=== PATIENT | female | born 1940 | race Caucasian/White ===

== ENCOUNTER → 2019-03-12 | Outpatient (CLI) | payer OTHER ==
[~2019-03-12] VITALS: Ht 149.9 cm; Wt 54.1 kg
[~2019-03-12] MED LIST: ALENDRONATE SOD70 MG PO; EXCEDRIN CAPLE1 EACH PO; FISH OIL 1,001000 M2 PO; MULTI VITAMIN1 EACH PO; NORCO 5-325 TA1 EACH PO; PREMARIN30 GM TOP; TRAMADOL 50 MG50 MG PO; TRAZODONE 150150 M1 PO; TYLENOL325 MG PO; VITAMIN D1000 UNI1 PO; VITAMIN E400 UNIT PO
--- NOTE | ~2019-03-12 | HPC ---
[facility] [address] [place] [address] PAIN MANAGEMENT CONSULTATION Name: JHONATAN HI Room #: REG LILY MEvelinYi.#: [id number] Admission: 03/12/19 ������������������ Attend Phys: Be Diana MD Discharge: ������������������ Date of : 36 Report #: [id number] THIS REPORT FOR: //name// CC: [facility] physician/PCP Romie Martinez MD DATE OF SERVICE: 03/12/2019 CHIEF COMPLAINT: Severe low back pain on the right with marked thoracolumbar rotational scoliosis. HISTORY OF PRESENT ILLNESS: The patient is a very pleasant 78-year-old who as we found out is neighbor! She lives just down the street from me, we have not met before today. For the last 4-5 years, she has had steadily increasing pain that she describes as a severe right-sided pain with continuous, steady, shooting, aching sensation. It is worsened by all exercise, bending and physical activity. She gets some relief when she rests and that she has been taking a combination of Excedrin, tramadol and hydrocodone at a low dose, which provides some relief. She has had multiple visits to [facility] where she has seen Patrick Goss. She also saw Dr. Hilda Trujilol for 1 visit at the Pain Clinic. It sounds from her description that she has had several epidurals over the years. I am not sure if she has had any radiofrequency or facet treatments. They do not sound familiar to her. She complains that the injection treatments have never provided much lasting relief, although she has had some short term benefits. She had a trial of a spinal cord stimulator at [facility] for her axial back pain. This was of course a failure and did not provide lasting relief. She has never had radiculopathy. Dr. Witt apparently discussed with her the possibility of an intrathecal pump; however, this seems a bit daunting for her given the size of the pump and her own small body habitus. She does remain active. She is doing water aerobics at [employer] and finds that this is helpful, but the pain relief is not lasting. She is not walking much because of the pain and feels that the pain is limiting her day-to-day activities. MEDICATIONS: List: Tramadol 50 mg t.i.d. at maximum usually at least once a day, hydrocodone 5/325 one half tablet as needed no more than 3 tablets per week, trazodone 150 mg daily, Premarin cream, Fosamax, Excedrin, Tylenol, fish [address] [address] PAIN MANAGEMENT CONSULTATION Name: JHONATAN HI RINA Room #: REG LILY Rosales#: [id number] Admission: 03/12/19 ������������������ Attend Phys: Be Diana MD Discharge: ������������������ Date of : 38 Report #: [id number] oil, multivitamins, vitamin E and vitamin D. ALLERGIES: None. PAST MEDICAL HISTORY: Hypertension, history of knee replacement in 2011. Distant surgeries included tonsillectomy in 1947 and appendectomy in 1956. Otherwise, she reports that she is in excellent health. SOCIAL HISTORY: She lives in my neighborhood in [place]. 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 She muses that she was not gifted herself, but taught the more gifted children. She denies use of tobacco or alcohol. She is currently . REVIEW OF SYSTEMS: Positive for fatigue; blurred vision; some hearing loss; chronic constipation, worse with medication; frequent urination; nocturia; and a history of depression, although she denies depression at this time. PHYSICAL EXAMINATION: GENERAL: She is a very giulia 78-year-old female. VITAL SIGNS: She is 4 feet 11 inches, weight 119 pounds, and BMI is 24.1. CHEST: Clear. CARDIAC: Rhythm is regular. ABDOMEN: Soft. MUSCULOSKELETAL: Demonstrates marked thoracolumbar curvature beginning in the [id number]-tg-evd thoracic region and then curving to the right with a dextrorotation. The right paravertebral musculature prominent and tender. She has diffuse tenderness across the lumbosacral segment. She has some mild pain that radiates into the right leg, which is consistent with radiculopathy of a mild degree present with straight leg raising. Deep tendon reflexes are absent. Sensation is intact. There is no focal weakness. IMPRESSION: 1. Chronic intractable back pain secondary to spondylosis and some mild lumbar radiculopathy. 2. History of hypertension, not currently under treatment. 3. Chronic intractable pain. RECOMMENDATIONS: We had a nice discussion today about treatment of chronic pain with medication. She does get quite good relief with hydrocodone, much more so than tramadol, and I have suggested to her that she can take it more frequently. We talked about the opioid crisis and we talked about the difference between dependence and addiction. We talked about tolerance and she has good understanding I think of tolerance, and is careful to try not to create it by taking more than she needs. [facility] [address] [place] [address] PAIN MANAGEMENT CONSULTATION Name: JHONATAN HI Room #: REG LILY Rosales#: [id number] Admission: 03/12/19 ������������������ Attend Phys: Be Diana MD Discharge: ������������������ Date of : 38 Report #: [id number] At the same time, I think that there is good reason for us to allow an 78-year-old woman, with an untreatable chronic and progressive spinal condition that causes significant pain, to go forward with a pain medication if she can manage the side effect of constipation. I would recommend for her that rather than wasting time on injections that probably will not provide substantial lasting relief that she take a bit more hydrocodone. She is under contract with Dr. Goss and she can discuss this with him. I am not trying to hijack her opioid agreement. I will be happy to provide that medication for her if she would like to make a transition, but for the time being, the [facility] pain clinic is close to home and she has a nice relationship with them. She will discuss medication management further with them. Thank very much for the consultation. ��������������������������������������������� ���������������������������������������� By: ��������������������������������������������� [id number] Be Diana MD /nt
[2019-03-12 10:36] VITALS: BP 144/67
--- NOTE | 2019-03-12 10:57 | NUR ---
Pain Clinic Assessment: 1. History of Osteoarthritis: BACK History of Rheumatoid Arthritis: Not Applicable 2. Height: 4 ft. 11 in. 149.9 cm. Weight: 119.2 lb. oz. 54.069 kg. Patient's BMI: 24.1 3. Vital Signs: BP: 144/67 Pulse: 70 Resp: 16 Temp: 02 Sat: 99 ECG Mon: 4. Pain Intensity: 8 5. Fall Risk: Dizziness: N Needs help standing or walking: N Fallen in the last 3 months: N Fall risk comments: 6. Patient on Blood Thinner: None 7. History of Hypertension: Y 8. Opioid Therapy greater than 6 weeks: N Opiate Contract Signed: 9. Risk Assessment Tool Provided: LOW RISK 10/30 10. Functional Assessment Tool: 11. Recreational Drug Use: Never Drug Type: Tobacco Use: Never Smoker Tobacco Type: Amount or Packs/day: How Many Years: Alcohol Use: No Frequency: Quant:
== END ==
LOC: PAIN 06:49
DX: M47.26 Other spondylosis with radiculopathy, lumbar region (principal); G89.4 Chronic pain syndrome; I10 Essential (primary) hypertension

== ENCOUNTER → 2019-04-02 | Outpatient (CLI) | payer OTHER ==
[~2019-04-02] VITALS: Ht 149.9 cm; Wt 54.3 kg
--- NOTE | ~2019-04-02 | HPC ---
[facility] [address] [place] [address] PAIN MANAGEMENT CONSULTATION Name: JHONATAN HI Room #: REG Nataliia Galvin.#: [id number] Admission: 04/02/19 ������������������ Attend Phys: Be Diana MD Discharge: ������������������ Date of : 38 Report #: [id number] THIS REPORT FOR: //name// CC: Patrick Goss MD [facility] physician/PCP Be Diana DATE OF SERVICE: 04/02/2019 The patient returned to the pain clinic today after her initial consultation believing that she was to get an injection. 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 I felt that her visit was a second opinion as she had been following with Dr. Goss at [facility] and has established an opioid agreement with him. Today, she presented with a new complaint of this localized pain over the left sacroiliac joint. Not surprised that she might periodically experienced spondylitic pains. We discussed treatment, which would include ongoing continued exercise, perhaps a nonsteroidal anti-inflammatory medication and sacroiliac injection. I reiterated my belief that if she has a good established relationship with Dr. Goss in their clinic for medication management that she can continue there. It is closer to her home in [facility] [place] [facility]. PHYSICAL EXAMINATION: VITAL SIGNS: Blood pressure is 142/58, heart rate 77, and respirations 14. She moves from sitting to standing position. Her gait is a bit unsteady and antalgic. Marked rotational scoliosis is once again noted. Examination of the lumbosacral segment reveals significant localized tenderness over the left sacroiliac joint. An ZACH test is positive, reproducing sacroiliac discomfort on the left of the contralateral side. Sensation and strength in the leg is symmetrical and within normal limits. She does not appear to have radiculopathy. IMPRESSION: 1. Chronic intractable back pain secondary to spondylosis. Significant thoracolumbar rotational scoliosis. 2. Sacroiliac joint pain with sacroiliitis that has developed since her last visit. RECOMMENDATION: I have agreed to provide her with a sacroiliac injection today at her request. I made it clear that this will not alleviate all of her back pain and may provide only temporary results. It should, however, provide some benefits for this specific pain generator. [address] [address] PAIN MANAGEMENT CONSULTATION Name: JHONATAN HI RINA Room #: REG CLNataliia Rosales#: [id number] Admission: 04/02/19 ������������������ Attend Phys: Be Diana MD Discharge: ������������������ Date of : 38 Report #: [id number] PROCEDURE: After informed consent, she was taken to fluoroscopic suite, placed prone, skin prepped with ChloraPrep. Skin anesthetized over the sacroiliac joint on the left. A 20-gauge spinal needle was then advanced into the posterior inferior capsule of the sacroiliac joint and repositioned until an excellent arthrogram was obtained with 0.25 mL of omnipaque. This was then followed by 1 mL of 0.25% bupivacaine mixed with 20 mg of triamcinolone. She tolerated the procedure well. Her overall pain score remained at 5 for her low back, but there was no pain in her sacroiliac joint at discharge. She should follow up in one clinic or the other going forward. I have referred her back to Dr. Patrick Goss. ��������������������������������������������� ���������������������������������������� By: ��������������������������������������������� [id number] Be Diana MD /nt
[2019-04-02 09:59] VITALS: BP 142/58
--- NOTE | 2019-04-02 10:12 | NUR ---
Pain Clinic Assessment: 1. History of Osteoarthritis: BACK History of Rheumatoid Arthritis: Not Applicable 2. Height: 4 ft. 11 in. 149.9 cm. Weight: 119.8 lb. oz. 54.341 kg. Patient's BMI: 24.2 3. Vital Signs: BP: 142/58 Pulse: 77 Resp: 14 Temp: 02 Sat: 100 ECG Mon: 4. Pain Intensity: 7 5. Fall Risk: Dizziness: N Needs help standing or walking: N Fallen in the last 3 months: N Fall risk comments: 6. Patient on Blood Thinner: None 7. History of Hypertension: Y 8. Opioid Therapy greater than 6 weeks: N Opiate Contract Signed: 9. Risk Assessment Tool Provided: LOW RISK 10/30 10. Functional Assessment Tool: 11. Recreational Drug Use: Never Drug Type: Tobacco Use: Never Smoker Tobacco Type: Amount or Packs/day: How Many Years: Alcohol Use: No Frequency: Quant:
== END | disposition home or self-care (01) ==
LOC: PAIN 06:54
DX: M53.3 Sacrococcygeal disorders, not elsewhere classified (principal); M46.1 Sacroiliitis, not elsewhere classified; M47.895 Other spondylosis, thoracolumbar region; M41.85 Other forms of scoliosis, thoracolumbar region; Z79.899 Other long term (current) drug therapy